=== PATIENT | female | born 1990 | race Caucasian/White ===

== ENCOUNTER 2016-08-17 18:56 | Emergency (ER) | payer BC ==
--- NOTE | 2016-08-17 19:55 | ED ORDER SUMMARY ---
..... Patient: TYE SRINIVASAN OrderSheet [facility] VisitID: [id number] [address] [place] [address] 25y, F Registration Date/Time: 08/17/2016 ORDER SHEET Weight: 58.9 kg (stated) Allergies: No Known Drug Allergy GENERAL ORDERS: Ankle 3 or 4V Right Urgent (19:07 08/17/2016 EKoroleva P.A.-C) (Ack 19:16 CHategekimana) (19:21 JSanders R.N.) Ice (19:08 08/17/2016 EKoroleva P.A.-C) (19:15 JSanders R.N.) Splint (LE) (Right) (Short Leg Posterior) (19:25 08/17/2016 EKoroleva P.A.-C) (Ack 19:33 JSanders R.N.) (19:54 JSanders R.N.) Crutches (19:25 08/17/2016 EKoroleva P.A.-C) (Ack 19:33 JSanders R.N.) (19:54 JSanders R.N.) MEDICATION ORDERS: Percocet PO 5/325 mg (HIGH ALERT MEDICATION, NOW) (19:07 08/17/2016 EKoroleva P.A.-C) (Ack 19:19 JSanders R.N.) (19:21 JSanders R.N.) Motrin PO 800 mg (NOW) (19:07 08/17/2016 EKoroleva P.A.-C) (Ack 19:19 JSanders R.N.) (19:20 JSanders R.N.) IV FLUIDS: ORDER SHEET NOTES: [Electronically signed by Nilda SharmaAEdna-[place] (20:00 08/17/2016)] [Electronically signed by Gisele Vieyra R.N. (02:15 08/23/2016)] [Electronically locked/signed by Gisele Vieyra R.N. (02:15 08/23/2016)]
--- NOTE | 2016-08-17 19:55 | ED CLINICAL REPORT ---
Clinical Report - Physicians/Mid Levels [facility] [address] [place] [address] 08/17/2016 18:58 [id number] Time Seen: 19:08 Aug 17 2016. Arrived- By private vehicle. Historian- patient. HISTORY OF PRESENT ILLNESS Chief Complaint: Injury to the right ankle. The injury happened just prior to arrival. Occurred at an athletic field. The patient sustained a twisting injury. Fell. This was not caused by a direct blow or crush injury or an incised wound. Patient is experiencing moderate pain. (Patient sustained injury to the rightankle just prior to arrival, while in shukla in her ankle and twisting it dry anesthetic about, from contact. Denies any previous injuries to the area. Initially pain medication. Reports difficulty with ambulation.). REVIEW OF SYSTEMS The patient sustained a laceration. She complains of pain on weight bearing. All systems otherwise negative, except as recorded above. PAST HISTORY The patient has not had a prior injury to the same area. SOCIAL HISTORY Never smoker. Alcohol use. No drug use. ADDITIONAL NOTES The nursing notes have been reviewed. PHYSICAL EXAM Vital Signs: 08/17/2016 19:08 BP: 120/94. HR: 97. RR: 18. O2 saturation: 100%. Temp: 98.4 F. Pain level now: 6/10. Appearance: Alert. No acute distress. Head: Head atraumatic. ENT: Ears normal. Nose normal. No injury to the nose. No tonsillar exudate. CVS: Normal heart rate and rhythm. Heart sounds normal. Respiratory: No respiratory distress. Breath sounds normal. Skin: Skin warm. Extremities: Right posterior ankle. No tenderness or swelling. Right lateral ankle: tenderness and severe swelling of the lateral ligaments. No abrasion, puncture wound, foreign body or deformity. No limitation in ROM. Right medial ankle. No tenderness or swelling. Right foot. No tenderness or swelling. Right heel. No tenderness or swelling. No foot injury. Neuro, Vascular and Tendons: Motor deficit present. Gait: The patient was unable to bear weight. LABS, X-RAYS, AND EKG Rt Ankle X-ray: Right ankle fracture. (closed distal fib). (reviewed with DR. Villalobos). The X-rays were independently viewed by me. Interpretation time: 1934. PROGRESS AND PROCEDURES Splint Application: Time: 1944. Short leg fiberglass splint applied to right ankle. Splint applied by trevon with direct supervision by me. Reassessed extremity following splint application. Neurovascular intact. Follow-up recommended within 5 days. Course of Care: Patient with distal fibular fracture, that are stable. Patient with inability to weight-bear. No signs of open fracture. No overlying laceration. Good distal sensation. Negative Yu test. No posterior Achilles injury. No calcaneus injury. Patient splinted and follow-up with orthopedics will be necessary. Patient is stable. Symptoms better. Patient/family counseled. Disposition: Discharged. CLINICAL IMPRESSION Closed transverse fracture of the lateral malleolus of the right fibula. INSTRUCTIONS Apply ice. Use crutches. Elevate affected areas above chest level. No weight bearing on right leg until released. Prescription Medications: Hydrocodone/APAP 10mg / 325mg: take 1 orally every 6 hours as needed for pain. Dispense thirty (30). No refill. Ibuprofen 800 mg tablets: take 1 tablet orally every 8 hours for 5 days, as needed for pain. Dispense fifteen (15). No refill. Follow-up with: [facility], , [address] [address] Follow-up with: Jair Cruz DPM, Podiatry, , [facility], [address] [place] [address], [address], [place] [address] (Electronically signed by Nilda Sharma P.A.-C 08/17/2016 20:00)
--- NOTE | 2016-08-17 19:55 | ED CLINICAL REPORT ---
Clinical Report - Physicians/Mid Levels [facility] [address] [place] [address] 08/17/2016 18:58 [id number] Time Seen: 19:08 Aug 17 2016. Arrived- By private vehicle. Historian- patient. HISTORY OF PRESENT ILLNESS Chief Complaint: Injury to the right ankle. The injury happened just prior to arrival. Occurred at an athletic field. The patient sustained a twisting injury. Fell. This was not caused by a direct blow or crush injury or an incised wound. Patient is experiencing moderate pain. (Patient sustained injury to the rightankle just prior to arrival, while in [place] in her ankle and twisting it dry anesthetic about, from contact. Denies any previous injuries to the area. Initially pain medication. Reports difficulty with ambulation.). REVIEW OF SYSTEMS The patient sustained a laceration. She complains of pain on weight bearing. All systems otherwise negative, except as recorded above. PAST HISTORY The patient has not had a prior injury to the same area. SOCIAL HISTORY Never smoker. Alcohol use. No drug use. ADDITIONAL NOTES The nursing notes have been reviewed. PHYSICAL EXAM Vital Signs: 08/17/2016 19:08 BP: 120/94. HR: 97. RR: 18. O2 saturation: 100%. Temp: 98.4 F. Pain level now: 6/10. Appearance: Alert. No acute distress. Head: Head atraumatic. ENT: Ears normal. Nose normal. No injury to the nose. No tonsillar exudate. CVS: Normal heart rate and rhythm. Heart sounds normal. Respiratory: No respiratory distress. Breath sounds normal. Skin: Skin warm. Extremities: Right posterior ankle. No tenderness or swelling. Right lateral ankle: tenderness and severe swelling of the lateral ligaments. No abrasion, puncture wound, foreign body or deformity. No limitation in ROM. Right medial ankle. No tenderness or swelling. Right foot. No tenderness or swelling. Right heel. No tenderness or swelling. No foot injury. Neuro, Vascular and Tendons: Motor deficit present. Gait: The patient was unable to bear weight. LABS, X-RAYS, AND EKG Rt Ankle X-ray: Right ankle fracture. (closed distal fib). (reviewed with DR. Villalobos). The X-rays were independently viewed by me. Interpretation time: 1934. PROGRESS AND PROCEDURES Splint Application: Time: 1944. Short leg fiberglass splint applied to right ankle. Splint applied by trevon with direct supervision by me. Reassessed extremity following splint application. Neurovascular intact. Follow-up recommended within 5 days. Course of Care: Patient with distal fibular fracture, that are stable. Patient with inability to weight-bear. No signs of open fracture. No overlying laceration. Good distal sensation. Negative Yu test. No posterior Achilles injury. No calcaneus injury. Patient splinted and follow-up with orthopedics will be necessary. Patient is stable. Symptoms better. Patient/family counseled. Disposition: Discharged. CLINICAL IMPRESSION Closed transverse fracture of the lateral malleolus of the right fibula. INSTRUCTIONS Apply ice. Use crutches. Elevate affected areas above chest level. No weight bearing on right leg until released. Prescription Medications: Hydrocodone/APAP 10mg / 325mg: take 1 orally every 6 hours as needed for pain. Dispense thirty (30). No refill. Ibuprofen 800 mg tablets: take 1 tablet orally every 8 hours for 5 days, as needed for pain. Dispense fifteen (15). No refill. Follow-up with: [facility], , [address] [address] Follow-up with: Jair Cruz DPM, Podiatry, , [facility], [address] [place] [address], [address], [place] [address] (Electronically signed by Nilda Sharma P.A.-C 08/17/2016 20:00)
--- NOTE | 2016-08-17 19:55 | ED NURSING NOTES ---
Clinical Report - Nurses [facility] [place] [address] 08/17/2016 18:58 [id number] Triage time 19:Aug 17 2016. Acuity: LEVEL 4. Chief Complaint: RIGHT LOWER EXTREMITY PAIN and SWELLING. 19:08/17/16. SEPSIS SCREEN: Sepsis Screen. Negative (no infection suspected/documented). ZIGGY COMA SCORE: Ziggy Coma Scale: 15- eyes open spontaneously (4); best verbal response- oriented x 4 (5); best motor response- obeys commands (6). --19:11 Gisele Vieyra R.N. 19:08/17/16. BP: 120/94 (regular adult cuff) taken on the left arm. HR: 97. RR: 18. O2 saturation: 100% on room air. Temp: 98.4 F (oral). Pain level now: 09/25. --19: Gisele Vieyra R.N. Weight: 58.9 kg stated. Height/Length: 61 inches Per Patient. BMI: 24.5. --19: Gisele Vieyra R.N. Medications None. --19: Gisele Vieyra R.N. Allergies No Known Drug Allergy. --19: Gisele Vieyra R.N. History Arrived by private vehicle. Historian: patient. Accompanied by family. Injury occurred. This occurred just prior to arrival. Occurred at an athletic field. She has had swelling. Treatment ROUTER TENDER: None. PAST MEDICAL HX: Negative. Last normal menstrual period was 1 week ago. SOCIAL HX: Never smoker. Occasional alcohol use. No drug use. No infectious disease exposure. ABUSE ASSESSMENT: No report of abuse. --19: Gisele Vieyra R.N. PROBLEMS: no known problems. ADDITIONAL SURGERIES: no known surgeries. Interventions ID band on patient. To treatment room. --19: Gisele Vieyra R.N. PHYSICAL ASSESSMENT 19:08/17/16. To room via wheelchair. GENERAL / NEURO / PSYCH: Oriented X 4. Appears in no acute distress. Appears in pain. EXTREMITIES: Limited ROM present. Lower extremity edema. Extremity pulses are within normal limits. Right ankle: tenderness and swelling. SKIN: Skin intact. Skin is warm. --19:11 Gisele Vieyra R.N. NURSING PROGRESS NOTES 19:12 08/17/16. The plan of care for this patient has been created. Cold pack applied. Extremity elevated. Reassurance given. Two patient identifiers checked. Call light placed in reach. Bed placed in lowest position. Brakes of bed on. Patient ready for evaluation- chart flagged and ED physician notified. --19:12 Gisele Vieyra R.N. 19:20 08/17/2016 Motrin PO Tablets 800 mg given. Allergies verified and confirmed 5 rights. --19:20 Gisele Vieyra R.N. 19:21 08/17/2016 Percocet (Oxycodone-Acetaminophen) PO 5/325 mg Tablets 1 tab given. Allergies verified, confirmed 5 rights and sedative warning given to the patient. --19:21 Gisele Vieyra R.N. 19:27 08/17/16. ( Offered warm blanket but patient refused). --19:27 Gisele Vieyra R.N. Short leg posterior fiberglass lower extremity splint applied to right ankle. Distal pulses intact, sensation intact and motor within normal limits. Patient fit with crutches (MEDIUM). Crutch training performed by [employer]; the patient demonstrated proper use. --20:04 Enmanuel Carmona, ER Peritoneal Dialysis Registered Nurse. DISPOSITION / DISCHARGE 19:59 08/17/2016 Motrin PO Response: no adverse reaction pain is improving. Symptoms have improved the patient feels better. --19:59 Gisele Vieyra R.N. 19:59 08/17/2016 Percocet PO Response: no adverse reaction pain is improving. Symptoms have improved the patient feels better. --19:59 Gisele Vieyra R.N. 20:08/17/16. Condition at departure: improved. No learning barriers present. Discharge instructions provided and reviewed with the patient. Reviewed medication(s) side effects, precautions and dosing information. Prescription(s) given to the patient. Reviewed crutch walking and splint care instructions. Activity restrictions (minimal use of injured extremity) reviewed. Follow up contact number Ortho. Patient verbalized understanding. Written instructions provided in Italian. The patient was discharged by the physician library assistant. She was discharged home and accompanied by spouse. She left the Emergency Department ambulatory and via private vehicle. Spouse driving. --20:01 Gisele Vieyra R.N. 19:58 08/17/16. BP: 109/72 (regular adult cuff) taken on the right arm. HR: 82. RR: 18. O2 saturation: 100% on room air. Temp: 98.6 F (oral). Pain level now: 09/25. --20:01 Gisele Vieyra R.N. Departure time: 20:05 Aug 17 2016. --20:05 Gisele Vieyra R.N. Locked/Released at 08/23/2016 2:15 by Gisele Vieyra R.N.
--- NOTE | 2016-08-17 19:55 | ED ORDER SUMMARY ---
..... Patient: TYE SRINIVASAN OrderSheet [facility] VisitID: [id number] [address] [place] [address] 25y, F Registration Date/Time: 08/17/2016 ORDER SHEET Weight: 58.9 kg (stated) Allergies: No Known Drug Allergy GENERAL ORDERS: Ankle 3 or 4V Right Urgent (19:07 08/17/2016 EKoroleva P.A.-C) (Ack 19:16 CHategekimana) (19:21 JSanders R.N.) Ice (19:08 08/17/2016 EKoroleva P.A.-C) (19:15 JSanders R.N.) Splint (LE) (Right) (Short Leg Posterior) (19:25 08/17/2016 EKoroleva P.A.-C) (Ack 19:33 JSanders R.N.) (19:54 JSanders R.N.) Crutches (19:25 08/17/2016 EKoroleva P.A.-C) (Ack 19:33 JSanders R.N.) (19:54 JSanders R.N.) MEDICATION ORDERS: Percocet PO 5/325 mg (HIGH ALERT MEDICATION, NOW) (19:07 08/17/2016 EKoroleva P.A.-C) (Ack 19:19 JSanders R.N.) (19:21 JSanders R.N.) Motrin PO 800 mg (NOW) (19:07 08/17/2016 EKoroleva P.A.-C) (Ack 19:19 JSanders R.N.) (19:20 JSanders R.N.) IV FLUIDS: ORDER SHEET NOTES: [Electronically signed by Nilda SharmaAEdna-[place] (20:00 08/17/2016)] [Electronically signed by Gisele Vieyra R.N. (02:15 08/23/2016)] [Electronically locked/signed by Gisele Vieyra R.N. (02:15 08/23/2016)]
--- NOTE | 2016-08-17 19:55 | ED NURSING NOTES ---
Clinical Report - Nurses [facility] [place] [address] 08/17/2016 18:58 [id number] Triage time 19:Aug 17 2016. Acuity: LEVEL 4. Chief Complaint: RIGHT LOWER EXTREMITY PAIN and SWELLING. 19:08/17/16. SEPSIS SCREEN: Sepsis Screen. Negative (no infection suspected/documented). ZIGGY COMA SCORE: Ziggy Coma Scale: 15- eyes open spontaneously (4); best verbal response- oriented x 4 (5); best motor response- obeys commands (6). --19:11 Gisele Vieyra R.N. 19:08/17/16. BP: 120/94 (regular adult cuff) taken on the left arm. HR: 97. RR: 18. O2 saturation: 100% on room air. Temp: 98.4 F (oral). Pain level now: 09/25. --19: Gisele Vieyra R.N. Weight: 58.9 kg stated. Height/Length: 61 inches Per Patient. BMI: 24.5. --19: Gisele Vieyra R.N. Medications None. --19: Gisele Vieyra R.N. Allergies No Known Drug Allergy. --19: Gisele Vieyra R.N. History Arrived by private vehicle. Historian: patient. Accompanied by family. Injury occurred. This occurred just prior to arrival. Occurred at an athletic field. She has had swelling. Treatment MARBLE COPER: None. PAST MEDICAL HX: Negative. Last normal menstrual period was 1 week ago. SOCIAL HX: Never smoker. Occasional alcohol use. No drug use. No infectious disease exposure. ABUSE ASSESSMENT: No report of abuse. --19: Gisele Vieyra R.N. PROBLEMS: no known problems. ADDITIONAL SURGERIES: no known surgeries. Interventions ID band on patient. To treatment room. --19: Gisele Vieyra R.N. PHYSICAL ASSESSMENT 19:08/17/16. To room via wheelchair. GENERAL / NEURO / PSYCH: Oriented X 4. Appears in no acute distress. Appears in pain. EXTREMITIES: Limited ROM present. Lower extremity edema. Extremity pulses are within normal limits. Right ankle: tenderness and swelling. SKIN: Skin intact. Skin is warm. --19:11 Gisele Vieyra R.N. NURSING PROGRESS NOTES 19:12 08/17/16. The plan of care for this patient has been created. Cold pack applied. Extremity elevated. Reassurance given. Two patient identifiers checked. Call light placed in reach. Bed placed in lowest position. Brakes of bed on. Patient ready for evaluation- chart flagged and ED physician notified. --19:12 Gisele Vieyra R.N. 19:20 08/17/2016 Motrin PO Tablets 800 mg given. Allergies verified and confirmed 5 rights. --19:20 Gisele Vieyra R.N. 19:21 08/17/2016 Percocet (Oxycodone-Acetaminophen) PO 5/325 mg Tablets 1 tab given. Allergies verified, confirmed 5 rights and sedative warning given to the patient. --19:21 Gisele Vieyra R.N. 19:27 08/17/16. ( Offered warm blanket but patient refused). --19:27 Gisele Vieyra R.N. Short leg posterior fiberglass lower extremity splint applied to right ankle. Distal pulses intact, sensation intact and motor within normal limits. Patient fit with crutches (MEDIUM). Crutch training performed by [employer]; the patient demonstrated proper use. --20:04 Enmanuel Carmona, ER Trace Evidence Technician. DISPOSITION / DISCHARGE 19:59 08/17/2016 Motrin PO Response: no adverse reaction pain is improving. Symptoms have improved the patient feels better. --19:59 Gisele Vieyra R.N. 19:59 08/17/2016 Percocet PO Response: no adverse reaction pain is improving. Symptoms have improved the patient feels better. --19:59 Gisele Vieyra R.N. 20:08/17/16. Condition at departure: improved. No learning barriers present. Discharge instructions provided and reviewed with the patient. Reviewed medication(s) side effects, precautions and dosing information. Prescription(s) given to the patient. Reviewed crutch walking and splint care instructions. Activity restrictions (minimal use of injured extremity) reviewed. Follow up contact number Ortho. Patient verbalized understanding. Written instructions provided in Irish. The patient was discharged by the physician pharmacy innovation assistant. She was discharged home and accompanied by spouse. She left the Emergency Department ambulatory and via private vehicle. Spouse driving. --20:01 Gisele Vieyra R.N. 19:58 08/17/16. BP: 109/72 (regular adult cuff) taken on the right arm. HR: 82. RR: 18. O2 saturation: 100% on room air. Temp: 98.6 F (oral). Pain level now: 09/25. --20:01 Gisele Vieyra R.N. Departure time: 20:05 Aug 17 2016. --20:05 Gisele Vieyra R.N. Locked/Released at 08/23/2016 2:15 by Gisele Vieyra R.N.
--- NOTE | 2016-08-17 20:37 | DIAGNOSTIC IMAGING REPORT ---
PROCEDURE: XR ANKLE 3 OR 4 VIEWS - RIGHT INDICATION: TRAUMA/INJURY TECHNIQUE: Four views. COMPARISON: None. FINDINGS: There is a mildly distracted transverse fracture of the right distal fibular metaphysis (lateral malleolus). Is associated marked soft tissue swelling over the lateral malleolus. The rest of the osseous structures and joint spaces are normal. IMPRESSION: 1. Mildly distracted transverse fracture of the right distal fibula (lateral malleolus) with marked soft tissue swelling.
--- NOTE | 2016-08-23 02:15 | ED MED RECONCILIATION SUMMARY ---
Patient: TYE SRINIVASAN Medication Reconciliation Report [facility] VisitID: [id number] [address] [place] [address] 25y, F Registration Date/Time: 08/17/2016 Weight: 58.9 kg Height/Length: 61 in. BMI: 24.5 ALLERGIES: No Known Drug Allergy The patient's Home Medications are listed below: NONE. The source(s) of the original Home Medication information: Not obtained. The following Medications were given to the patient in the Emergency Department: Motrin [PO] PO 800 mg, administered: 08/17/2016 7:20:00 PM Percocet [PO] PO 1 tab, administered: 08/17/2016 7:21:00 PM The following Medications were prescribed to the patient: Hydrocodone/APAP 10mg / 325mg: take 1 orally every 6 hours as needed for pain. Dispense thirty (30). No refill. -- Nilda Sharma, P.A.-[place] Ibuprofen 800 mg tablets: take 1 tablet orally every 8 hours for 5 days, as needed for pain. Dispense fifteen (15). No refill. -- Nilda Sharma, P.A.-C
--- NOTE | 2016-08-23 02:15 | ED DISCHARGE INSTRUCTIONS ---
Patient: TYE SRINIVASAN General Instructions [facility] VisitID: [id number] [address] [place] [id number] 25y, F Registration Date/Time: 08/17/2016 Closed transverse fracture of the lateral malleolus of the right fibula. INSTRUCTIONS Apply ice. Use crutches. Elevate affected areas above chest level. No weight bearing on right leg until released. Prescription Medications: Hydrocodone/APAP 10mg / 325mg: take 1 orally every 6 hours as needed for pain. Dispense thirty (30). No refill. Ibuprofen 800 mg tablets: take 1 tablet orally every 8 hours for 5 days, as needed for pain. Dispense fifteen (15). No refill. Follow-up with: [facility], [facility], , [address] [place] [address] Follow-up with: Jair Cruz DPM, Podiatry, , [facility], [address] [place] [address], [address], [place] [address] ADDITIONAL INFORMATION Fracture,Ankle, Distal Fibula You have a fracture (broken bone) of the end of the fibula bone. This is one of two bones that support the ankle joint. Home Care: You will be given a splint, cast or special boot to prevent movement at the site of injury. Do not put weight on a splint; it will break. Follow your doctor's advice regarding when to begin bearing weight on a cast or boot. Keep your leg elevated when sitting or lying down. When sleeping, place a pillow under the injured leg. When sitting, support the injured leg so it is level with your waist. This is very important during the first 48 hours. Keep the cast/splint completely dry at all times. When bathing, protect the cast/splint with a large plastic bag, rubber-banded at the top end. If a fiberglass cast or splint gets wet, you can dry it with a hair-dryer. Place an ice pack (ice cubes in a plastic bag, wrapped in a towel) on the splint/cast over the injured area for 20 minutes every 2 hours during the first day.You can place the ice pack directly over the splint/cast. Continue this 3-4 times a day for the next two days. You may use acetaminophen (Tylenol) or ibuprofen (Motrin, Advil) to control pain, unless another pain medicine was prescribed. [NOTE: If you have chronic liver or kidney disease or ever had a stomach ulcer or GI bleeding, talk with your doctor before using these medicines.] Follow Up with your doctor in one week, or as advised by our staff, to be sure the bone is healing properly. If you were given a splint, it may be changed to a cast after the swelling goes down. [NOTE: A radiologist will review any X-rays that were taken. We will notify you of any new findings that may affect your care.] Get Prompt Medical Attention if any of the following occur: The plaster cast or splint becomes wet or soft The fiberglass cast or splint remains wet for more than 24 hours Increased tightness or pain under the cast or splint Toes become swollen, cold, blue, numb or tingly Hydrocodone Bitartrate, Acetaminophen Oral tablet What is this medicine? ACETAMINOPHEN; HYDROCODONE (a set a CORINNE tonny fen; maddy droe KOE done) is a pain reliever. It is used to treat mild to moderate pain. How should I use this medicine? Take this medicine by mouth. Swallow it with a full glass of water. Follow the directions on the prescription label. If the medicine upsets your stomach, take the medicine with food or milk. Do not take more than you are told to take. Talk to your credentialing assistant regarding the use of this medicine in children. This medicine is not approved for use in children. What side effects may I notice from receiving this medicine? Side effects that you should report to your doctor or health personal care service provider as soon as possible: allergic reactions like skin rash, itching or hives, swelling of the face, lips, or tongue breathing problems confusion feeling faint or lightheaded, falls stomach pain yellowing of the eyes or skin Side effects that usually do not require medical attention (report to your doctor or health personal care service provider if they continue or are bothersome): nausea, vomiting stomach upset What may interact with this medicine? alcohol antihistamines isoniazid medicines for depression, anxiety, or psychotic disturbances medicines for sleep muscle relaxants naltrexone narcotic medicines (opiates) for pain phenobarbital ritonavir tramadol What if I miss a dose? If you miss a dose, take it as soon as you can. If it is almost time for your next dose, take only that dose. Do not take double or extra doses. Where should I keep my medicine? Keep out of the reach of children. This medicine can be abused. Keep your medicine in a safe place to protect it from theft. Do not share this medicine with anyone. Selling or giving away this medicine is dangerous and against the law. Store at room temperature between 15 and 30 degrees C (59 and 86 degrees F). Protect from light. Keep container tightly closed. Throw away any unused medicine after the expiration date. Discard unused medicine and used packaging carefully. Pets and children can be harmed if they find used or lost packages. What should I tell my health care provider before I take this medicine? They need to know if you have any of these conditions: brain tumor Crohn's disease, inflammatory bowel disease, or ulcerative colitis drink more than 3 alcohol-containing drinks per day drug abuse or addiction head injury heart or circulation problems kidney disease or problems going to the bathroom liver disease lung disease, asthma, or breathing problems an unusual or allergic reaction to acetaminophen, hydrocodone, other opioid analgesics, other medicines, foods, dyes, or preservatives or trying to get breast-feeding What should I watch for while using this medicine? Tell your doctor or health personal care service provider if your pain does not go away, if it gets worse, or if you have new or a different type of pain. You may develop tolerance to the medicine. Tolerance means that you will need a higher dose of the medicine for pain relief. Tolerance is normal and is expected if you take the medicine for a long time. Do not suddenly stop taking your medicine because you may develop a severe reaction. Your body becomes used to the medicine. This does NOT mean you are addicted. Addiction is a behavior related to getting and using a drug for a non-medical reason. If you have pain, you have a medical reason to take pain medicine. Your doctor will tell you how much medicine to take. If your doctor wants you to stop the medicine, the dose will be slowly lowered over time to avoid any side effects. You may get drowsy or dizzy when you first start taking the medicine or change doses. Do not drive, use machinery, or do anything that may be dangerous until you know how the medicine affects you. Stand or sit up slowly. There are different types of narcotic medicines (opiates) for pain. If you take more than one type at the same time, you may have more side effects. Give your health care provider a list of all medicines you use. Your doctor will tell you how much medicine to take. Do not take more medicine than directed. Call emergency for help if you have problems breathing. The medicine will cause constipation. Try to have a bowel movement at least every 2 to 3 days. If you do not have a bowel movement for 3 days, call your doctor or health personal care service provider. Too much acetaminophen can be very dangerous. Do not take Tylenol (acetaminophen) or medicines that contain acetaminophen with this medicine. Many non-prescription medicines contain acetaminophen. Always read the labels carefully. You have been given the following additional information: Ankle Fracture (Distal Fibula), Closed Hydrocodone Bitartrate, Acetaminophen Oral tablet No weight bearing on right leg until released. (Electronically signed by Nilda Sharma P.A.-C 08/17/2016 20:00)
--- NOTE | 2016-08-23 02:15 | ED DISCHARGE INSTRUCTIONS ---
Patient: TYE SRINIVASAN General Instructions [facility] VisitID: [id number] [address] [place] [id number] 25y, F Registration Date/Time: 08/17/2016 Closed transverse fracture of the lateral malleolus of the right fibula. INSTRUCTIONS Apply ice. Use crutches. Elevate affected areas above chest level. No weight bearing on right leg until released. Prescription Medications: Hydrocodone/APAP 10mg / 325mg: take 1 orally every 6 hours as needed for pain. Dispense thirty (30). No refill. Ibuprofen 800 mg tablets: take 1 tablet orally every 8 hours for 5 days, as needed for pain. Dispense fifteen (15). No refill. Follow-up with: [facility], [facility], , [address] [place] [address] Follow-up with: Jair Cruz DPM, Podiatry, , [facility], [address] [place] [address], [address], [place] [address] ADDITIONAL INFORMATION Fracture,Ankle, Distal Fibula You have a fracture (broken bone) of the end of the fibula bone. This is one of two bones that support the ankle joint. Home Care: You will be given a splint, cast or special boot to prevent movement at the site of injury. Do not put weight on a splint; it will break. Follow your doctor's advice regarding when to begin bearing weight on a cast or boot. Keep your leg elevated when sitting or lying down. When sleeping, place a pillow under the injured leg. When sitting, support the injured leg so it is level with your waist. This is very important during the first 48 hours. Keep the cast/splint completely dry at all times. When bathing, protect the cast/splint with a large plastic bag, rubber-banded at the top end. If a fiberglass cast or splint gets wet, you can dry it with a hair-dryer. Place an ice pack (ice cubes in a plastic bag, wrapped in a towel) on the splint/cast over the injured area for 20 minutes every 2 hours during the first day.You can place the ice pack directly over the splint/cast. Continue this 3-4 times a day for the next two days. You may use acetaminophen (Tylenol) or ibuprofen (Motrin, Advil) to control pain, unless another pain medicine was prescribed. [NOTE: If you have chronic liver or kidney disease or ever had a stomach ulcer or GI bleeding, talk with your doctor before using these medicines.] Follow Up with your doctor in one week, or as advised by our staff, to be sure the bone is healing properly. If you were given a splint, it may be changed to a cast after the swelling goes down. [NOTE: A radiologist will review any X-rays that were taken. We will notify you of any new findings that may affect your care.] Get Prompt Medical Attention if any of the following occur: The plaster cast or splint becomes wet or soft The fiberglass cast or splint remains wet for more than 24 hours Increased tightness or pain under the cast or splint Toes become swollen, cold, blue, numb or tingly Hydrocodone Bitartrate, Acetaminophen Oral tablet What is this medicine? ACETAMINOPHEN; HYDROCODONE (a set a CORINNE tonny fen; maddy droe KOE done) is a pain reliever. It is used to treat mild to moderate pain. How should I use this medicine? Take this medicine by mouth. Swallow it with a full glass of water. Follow the directions on the prescription label. If the medicine upsets your stomach, take the medicine with food or milk. Do not take more than you are told to take. Talk to your mint wafer depositor regarding the use of this medicine in children. This medicine is not approved for use in children. What side effects may I notice from receiving this medicine? Side effects that you should report to your doctor or health wound care center consultant as soon as possible: allergic reactions like skin rash, itching or hives, swelling of the face, lips, or tongue breathing problems confusion feeling faint or lightheaded, falls stomach pain yellowing of the eyes or skin Side effects that usually do not require medical attention (report to your doctor or health wound care center consultant if they continue or are bothersome): nausea, vomiting stomach upset What may interact with this medicine? alcohol antihistamines isoniazid medicines for depression, anxiety, or psychotic disturbances medicines for sleep muscle relaxants naltrexone narcotic medicines (opiates) for pain phenobarbital ritonavir tramadol What if I miss a dose? If you miss a dose, take it as soon as you can. If it is almost time for your next dose, take only that dose. Do not take double or extra doses. Where should I keep my medicine? Keep out of the reach of children. This medicine can be abused. Keep your medicine in a safe place to protect it from theft. Do not share this medicine with anyone. Selling or giving away this medicine is dangerous and against the law. Store at room temperature between 15 and 30 degrees C (59 and 86 degrees F). Protect from light. Keep container tightly closed. Throw away any unused medicine after the expiration date. Discard unused medicine and used packaging carefully. Pets and children can be harmed if they find used or lost packages. What should I tell my health care provider before I take this medicine? They need to know if you have any of these conditions: brain tumor Crohn's disease, inflammatory bowel disease, or ulcerative colitis drink more than 3 alcohol-containing drinks per day drug abuse or addiction head injury heart or circulation problems kidney disease or problems going to the bathroom liver disease lung disease, asthma, or breathing problems an unusual or allergic reaction to acetaminophen, hydrocodone, other opioid analgesics, other medicines, foods, dyes, or preservatives or trying to get breast-feeding What should I watch for while using this medicine? Tell your doctor or health wound care center consultant if your pain does not go away, if it gets worse, or if you have new or a different type of pain. You may develop tolerance to the medicine. Tolerance means that you will need a higher dose of the medicine for pain relief. Tolerance is normal and is expected if you take the medicine for a long time. Do not suddenly stop taking your medicine because you may develop a severe reaction. Your body becomes used to the medicine. This does NOT mean you are addicted. Addiction is a behavior related to getting and using a drug for a non-medical reason. If you have pain, you have a medical reason to take pain medicine. Your doctor will tell you how much medicine to take. If your doctor wants you to stop the medicine, the dose will be slowly lowered over time to avoid any side effects. You may get drowsy or dizzy when you first start taking the medicine or change doses. Do not drive, use machinery, or do anything that may be dangerous until you know how the medicine affects you. Stand or sit up slowly. There are different types of narcotic medicines (opiates) for pain. If you take more than one type at the same time, you may have more side effects. Give your health care provider a list of all medicines you use. Your doctor will tell you how much medicine to take. Do not take more medicine than directed. Call emergency for help if you have problems breathing. The medicine will cause constipation. Try to have a bowel movement at least every 2 to 3 days. If you do not have a bowel movement for 3 days, call your doctor or health wound care center consultant. Too much acetaminophen can be very dangerous. Do not take Tylenol (acetaminophen) or medicines that contain acetaminophen with this medicine. Many non-prescription medicines contain acetaminophen. Always read the labels carefully. You have been given the following additional information: Ankle Fracture (Distal Fibula), Closed Hydrocodone Bitartrate, Acetaminophen Oral tablet No weight bearing on right leg until released. (Electronically signed by Nilda Sharma P.A.-C 08/17/2016 20:00)
--- NOTE | 2016-08-23 02:15 | ED MAR SUMMARY ---
..... Medication Administration Record [facility] [address] [place] [address] Patient: TYE SRINIVASAN Visit ID: [id number] 25y, F Weight: 58.9 kg Height/Length: 61 in BMI: 24.5 ALLERGIES: No Known Drug Allergy Given 19:08/17/2016 Gisele Vieyra R.N. Medication Administered: MOTRIN [PO], Dose: 800 mg Tablets PO. Medication Ordered: Motrin PO 800 mg (NOW). Given 19:08/17/2016 Gisele Vieyra REdnaN. Medication Administered: PERCOCET [PO] (OXYCODONE-ACETAMINOPHEN), Dose: 1 tab 5/325 mg Tablets PO. Medication Ordered: Percocet PO 5/325 mg (HIGH ALERT MEDICATION, NOW).
--- NOTE | 2016-08-23 02:15 | ED MAR SUMMARY ---
..... Medication Administration Record [facility] [address] [place] [address] Patient: TYE SRINIVASAN Visit ID: [id number] 25y, F Weight: 58.9 kg Height/Length: 61 in BMI: 24.5 ALLERGIES: No Known Drug Allergy Given 19:08/17/2016 Gisele Vieyra R.N. Medication Administered: MOTRIN [PO], Dose: 800 mg Tablets PO. Medication Ordered: Motrin PO 800 mg (NOW). Given 19:08/17/2016 Gisele Vieyra REdnaN. Medication Administered: PERCOCET [PO] (OXYCODONE-ACETAMINOPHEN), Dose: 1 tab 5/325 mg Tablets PO. Medication Ordered: Percocet PO 5/325 mg (HIGH ALERT MEDICATION, NOW).
--- NOTE | 2016-08-23 02:15 | ED MED RECONCILIATION SUMMARY ---
Patient: TYE SRINIVASAN Medication Reconciliation Report [facility] VisitID: [id number] [address] [place] [address] 25y, F Registration Date/Time: 08/17/2016 Weight: 58.9 kg Height/Length: 61 in. BMI: 24.5 ALLERGIES: No Known Drug Allergy The patient's Home Medications are listed below: NONE. The source(s) of the original Home Medication information: Not obtained. The following Medications were given to the patient in the Emergency Department: Motrin [PO] PO 800 mg, administered: 08/17/2016 7:20:00 PM Percocet [PO] PO 1 tab, administered: 08/17/2016 7:21:00 PM The following Medications were prescribed to the patient: Hydrocodone/APAP 10mg / 325mg: take 1 orally every 6 hours as needed for pain. Dispense thirty (30). No refill. -- Nilda Sharma, P.A.-[place] Ibuprofen 800 mg tablets: take 1 tablet orally every 8 hours for 5 days, as needed for pain. Dispense fifteen (15). No refill. -- Nilda Sharma, P.A.-C
== END 2016-08-17 20:05 | disposition home or self-care (01) ==
LOC: ED SRH 18:56
DX: S82.61XA Displaced fracture of lateral malleolus of right fibula, initial encounter for closed fracture (principal); X50.1XXA Overexertion from prolonged static or awkward postures, initial encounter; Y92.328 Other athletic field as the place of occurrence of the external cause